=== PATIENT | male | born 1955 | race Caucasian/White ===

== ENCOUNTER 2020-09-23 13:57 | Emergency (ER) | payer OTHER ==
[~2020-09-23 13:57] MED LIST: ASPIR 8181 MG PO; BUSPIRONE HCL15 MG PO; ELIQUIS 2.5 MG2.5 MG PO; LISINOPRIL40 MG PO; MAGNESIUM100 MG PO; NORVASC10 MG PO; PAXIL10 MG PO; PERCOCET 10-321 EACH PO; TORADOL 10 MG T10 MG PO; ULTRAM50 MG PO; VITAMIN C1000 MG PO; VITAMIN D3250 MCG PO; WELLBUTRIN XL300 MG PO; ZINC10 MG PO
[2020-11-24] MEDS ORDERED: LO-DOSE ASPIRIN81 MG PO (08:41)
[2020-11-24] MEDS ORDERED: CRESTOR10 MG PO (08:48)
[2020-11-24] MEDS ORDERED: WELLBUTRIN XL300 M1 PO (08:48)
== END 2020-09-23 14:58 | disposition home or self-care (01) ==
LOC: ER1 13:57
DX: S46.911A Strain of unspecified muscle, fascia and tendon at shoulder and upper arm level, right arm, initial encounter (principal); X50.9XXA Other and unspecified overexertion or strenuous movements or postures, initial encounter; Y92.009 Unspecified place in unspecified non-institutional (private) residence as the place of occurrence of the external cause
CPT/HCPCS: 73030; 96372; 99283; J1885

== ENCOUNTER → 2020-10-03 | Outpatient (CLI) | payer OTHER ==
[~2020-10-03] MED LIST changes: +CRESTOR10 MG PO; +LO-DOSE ASPIRIN81 MG PO; +WELLBUTRIN XL300 M1 PO
== END ==
LOC: KOH-I 11:17
DX: S46.201A Unspecified injury of muscle, fascia and tendon of other parts of biceps, right arm, initial encounter (principal); S43.431A Superior glenoid labrum lesion of right shoulder, initial encounter
CPT/HCPCS: 73221

== ENCOUNTER → 2020-11-15 | Outpatient (CLI) | payer OTHER ==
[2020-11-15 11:17] LABS: RED BLOOD COUNT 5.08 M/UL (4.20-5.50); WHITE BLOOD COUNT 6.2 K/UL (4.5-11.0)
[2020-11-15 11:41] LABS: BUN/CREATININE RATIO 14 (0-10)
== END ==
LOC: OPSV2 10:00
PROVIDERS: Orthopaedic Surgery
DX: Z01.812 Encounter for preprocedural laboratory examination (principal); Z01.810 Encounter for preprocedural cardiovascular examination; Z01.811 Encounter for preprocedural respiratory examination; M75.101 Unspecified rotator cuff tear or rupture of right shoulder, not specified as traumatic; R94.31 Abnormal electrocardiogram [ECG] [EKG]; I25.2 Old myocardial infarction
CPT/HCPCS: 36415; 71046; 80048; 85025; 93005

== ENCOUNTER → 2020-11-24 | Day surgery (SDC) | payer OTHER ==
[~2020-11-24] VITALS: Ht 180.3 cm; Wt 90.3 kg
== END | disposition home or self-care (01) ==
LOC: OR 07:48
DX: M75.121 Complete rotator cuff tear or rupture of right shoulder, not specified as traumatic (principal); S43.431A Superior glenoid labrum lesion of right shoulder, initial encounter; M75.21 Bicipital tendinitis, right shoulder; M25.811 Other specified joint disorders, right shoulder; M65.811 Other synovitis and tenosynovitis, right shoulder; I10 Essential (primary) hypertension; E78.5 Hyperlipidemia, unspecified; Z87.891 Personal history of nicotine dependence; Z79.82 Long term (current) use of aspirin; Z79.899 Other long term (current) drug therapy; W19.XXXA Unspecified fall, initial encounter
CPT/HCPCS: C1713; C1762; J0171; J0690; J1100; J2001; J2250; J2370; J2405; J2550; J2704; J2795; J3010; J7120